=== PATIENT | female | born 1945 | race Caucasian/White ===

== ENCOUNTER 2023-05-13 08:25 | Inpatient (IN) | payer BC ==
[~2023-05-13] VITALS: Ht 167.6 cm; Wt 69.9 kg
[~2023-05-13 08:25] MED LIST: ACETAMINOPHEN IV 1000 MG/100ML (10MG/ML) IV ONE; AMLO1TAB22 PO; CELECOXIB 100 MG CAP PO ONE; ESTR0.3T PO; GABAPENTIN 300 MG CAP PO ONE; LOSA50TA46 PO
[2023-05-13] MEDS ORDERED: ceFAZolin 1GM/50ML 100 ML IV ONE (09:20)
[2023-05-13] MEDS ORDERED: DexAMETHasone SOD PHOS 10MG/1ML VIAL INJ ONE (09:25)
[2023-05-13] MEDS ORDERED: KETOROLAC TROMETH 30 MG/ML 1ML VIAL ONE (09:25)
[2023-05-13] MEDS ORDERED: LIDOCAINE 2% (LOCAL ANESTH.) PF 5ml SDV ONE (09:25)
[2023-05-13] MEDS ORDERED: PROPOFOL 10 MG/ML 20 ML IV ONE (09:25)
[2023-05-13] MEDS ORDERED: ONDANSETRON HCL 4 MG/2 ML VIAL ONE (09:25)
[2023-05-13] MEDS ORDERED: ROCURONIUM 10MG/ML 10ML VIAL IV ONE (09:25)
[2023-05-13] MEDS ORDERED: GLYCOPYRROLATE 0.2 MG/ML 1ML VIAL ONE (09:25)
[2023-05-13] MEDS ORDERED: METHYLENE BLUE 0.5% 5MG/ML 10ml AMP IV ONE ×2 (10:19→12:15)
[2023-05-13] MEDS ORDERED: BUPIVACAINE 0.25% INJ 50ML VIAL ONE (10:20)
[2023-05-13] MEDS ORDERED: ACETAMINOPHEN IV 100 ML IV ONE (10:30)
[2023-05-13] MEDS ORDERED: HYDROmorphone HCL 2 MG/ML VL/or syr IV PRN ×2 (10:30→13:30)
[2023-05-13] MEDS ORDERED: MORPHINE SULFATE INJ 2 MG/ml SYRG IV PRN (10:30)
[2023-05-13] MEDS ORDERED: NITROGLYCERIN 0.4 MG SL TAB SL PRN (10:30)
[2023-05-13] MEDS ORDERED: ceFAZolin 1GM/50ML 50 ML IV ONE ×2 (10:30→19:00)
[2023-05-13] MEDS ORDERED: ONDANSETRON HCL 4 MG/2 ML VIAL IV PRN ×2 (10:30→13:30)
[2023-05-13] MEDS ORDERED: LIDOCAINE W/ EPINEPHRINE 1% 20ML VIAL ONE (10:31)
[2023-05-13] MEDS ORDERED: LIDOCAINE 2%HCL (LOCAL ANESTH.) INJ 10ml MDV ONE (10:33)
[2023-05-13] MEDS ORDERED: SUGAMMADEX 200mg/2ml Vial (100MG/ML) IV ONE (10:39)
[2023-05-13] MEDS ORDERED: fentaNYL CITRATE 100 MCG/2 ML VL ONE (10:40)
[2023-05-13] MEDS ORDERED: BUPIVACAINE 0.25% INJ 50ML VIAL IJ ONE (12:42)
[2023-05-13] MEDS ORDERED: LIDOCAINE 1%-Mpf/Epinephrine 1:200,000 SC ONE (12:42)
[2023-05-13] MEDS ORDERED: CONJ ESTROGENS 0.625MG/GM VAG CRM 30GM PV ONE ×2 (12:52→12:56)
[2023-05-13 13:16] VITALS: PULSE 98; RESP 24; O2SAT 98
[2023-05-13] MEDS ORDERED: LABETALOL HCL 5 MG/ML 4ML SYRINGE IV PRN (13:30)
[2023-05-13] MEDS ORDERED: fentaNYL CITRATE 100 MCG/2 ML VL IV PRN (13:30)
[2023-05-13] MEDS ORDERED: hydrALAZINE HCL 20 MG/ML VL IV PRN (13:30)
[2023-05-13] MEDS ORDERED: ePHEDrine SULFATE 50 MG/ML AMP IV PRN (13:30)
[2023-05-13] MEDS ORDERED: oxyCODONE HCL 5MG TAB PO PRN (13:30)
[2023-05-13] MEDS ORDERED: FLUMAZENIL 0.1 MG/ML INJ 10ML MDV IV PRN (13:30)
[2023-05-13] MEDS ORDERED: NALOXONE HCL 0.4 MG/ML VIAL IV PRN (13:30)
[2023-05-13] MEDS: SODIUM CHLORIDE 0.9% 1,000 ML IV SCH ×2 (15:15→22:21)
[2023-05-13 22:00] VITALS: BP 108/55; PULSE 79; RESP 16; TEMP 98.8; O2SAT 93
[2023-05-14 05:00] VITALS: BP 111/63; PULSE 71; RESP 16; TEMP 98; O2SAT 93
[2023-05-14 09:00] VITALS: BP 114/54; PULSE 71; RESP 17; TEMP 98.3; O2SAT 95
[2023-05-14 10:37] VITALS: BP 114/54; PULSE 71; RESP 17; TEMP 98.3; O2SAT 95
[2023-05-14 12:30] VITALS: BP 120/43; PULSE 76; RESP 20; TEMP 98; O2SAT 95
== END 2023-05-14 13:15 | disposition home or self-care (01) | DRG 748 ==
LOC: SUR 08:25 → OVERFLOW 10:31 → EAST 15:47
PROVIDERS: ADMIT Obstetrics & Gynecology; ATTEND Obstetrics & Gynecology
PROC: 0JUC0JZ Supplement of Pelvic Region Subcutaneous Tissue and Fascia with Synthetic Substitute, Open Approach (ICD-10-PCS; 2023-05-13)
PROC: 0JUC0JZ Supplement of Pelvic Region Subcutaneous Tissue and Fascia with Synthetic Substitute, Open Approach (ICD-10-PCS; 2023-05-13)
PROC: 8E0W0CZ Robotic Assisted Procedure of Trunk Region, Open Approach (ICD-10-PCS; 2023-05-13)
PROC: 0JUC0JZ Supplement of Pelvic Region Subcutaneous Tissue and Fascia with Synthetic Substitute, Open Approach (ICD-10-PCS; principal; 2023-05-13 10:44)
DX: N81.6 Rectocele (principal); N81.89 Other female genital prolapse; N81.10 Cystocele, unspecified; N81.5 Vaginal enterocele
CPT/HCPCS: 86850; 86900; 86901; 97163; C1713; C1781; G0378; J0131; J0690; J1100; J1885; J2001; J2405; J2704; J3490